=== PATIENT | male | born 1965 | race Caucasian/White ===

== ENCOUNTER 2022-02-03 15:30 | Outpatient (RCR) | payer OTHER, BC, SELFPAY ==
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
--- NOTE | 2022-02-03 15:51 | HP.PTREVAL ---
Dr. Wes Walls MD, It has been my pleasure to treat MARTHA EDGAR over the last 11 visits for Left Brachial Plexus Injury. Please see the progress note below for an update on the physical therapy plan of care! Subjective: Patient reports that he is no better or no worse with the function of his arm. He has no pain- he does have muscle soreness from the exercises. He is doing his HEP at home consistently. Objective/Function: Posture: FH, RS- can correct with verbal cues but does not maintain. Gait: good arm swing and trunk rotation. Observation: atrophy of the supraspinatus and infraspinatus. Palpation: not tender to touch in UE or cervical spine. 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 Shoulder: Flexion: 125 degrees 180 degrees Extn: WFL Abd: 180 degrees ER: 10, IR to belly, Cervical: WFL in all planes. Strength: Laminator Preforms: Right: 120, 120, 115 Left: 60, 70, 70. Elbow: Right Extn: 30, 28, 28 Right Flexion: 25, 28, 27. Left Extn:18, 18, 18 Left Flexion: 7, 8,9. . Shoulder- tested at neutral-. Flexion: Right:45, 46, 45 Left: 20, 22, 22. Extn: Right: 40,41,40 Left: 21, 19, 21. Abd: Right: 32,32,30 Left: 24, 24,22. Add: Right: 45,42,42 Left: 24,24,22. ER: Right: 29,28,27 Left: 19,18,17. IR: Right: 28,24,24 Left: 9,11,11. Sensation: WNL to hand- hand not tested due to previous surgeries and nerve damage. Plan Plan: 02/03/22: Follow up with on Mon. Focus on UE and scapular s/s- Brachial Plexus Injury. Balance/Gait/Functional tests - Balance/Special Test Scores Quick DASH Score: 45.4525 Goals Goal 1:: Patient will maintain proper posture t/o tx session to demo increased scap s/s Goal Time Frame: 4-6 Weeks Goal Progress: Progressing Goal 2:: Patient will demo full AROM in the left. Goal Progress: Progressing Goal 3:: Patient will improve strength in left UE by 10 lbs of force in IR/ER Goal Time Frame: 4-6 Weeks Goal Progress: Progressing Anticipated Interventions Patient/Client Instruction: Educate patient on: Benefits of Fitness Program Therapeutic Exercise to Include: Strength training, Endurance training, Body mechanics, Postural training, Neuromotor development, Dynamic Lumbar Stabilization, Scapular Strength/Stabilization For the Purpose of:: To improve muscle performance and motor function Please do not hesitate to contact me at [phone] by phone or if you have questions or concerns regarding this new plan of care! Sincerely, JERROD HobbsT
--- NOTE | 2022-05-16 13:49 | HP.PT.NRP ---
MARTHA EDGAR was seen in my office for initial evaluation on 01/10/22. The following Plan of Care was established for this patient: Initial Frequency: 3x /Week Initial Duration: 4 Weeks Patient/Client Instruction: Educate patient on: Benefits of Fitness Program Therapeutic Exercise to Include: Strength training, Endurance training, Body mechanics, Postural training, Neuromotor development, Dynamic Lumbar Stabilization, Scapular Strength/Stabilization For the Purpose of:: To improve muscle performance and motor function This patient was last seen in our office . Pertinent comments regarding their Physical therapy will appear below: Patient has not attended PT in over 30 days and is appropriate to d/c and return to MD for further evaluation At this point I will be discontinuing this patient from physical therapy. I would be happy to see this patient again in the future if found appropriate by the physician. Thank you! Ca Arrington, DPT Balance/Gait/Functional tests - Balance/Special Test Scores Quick DASH Score: 45.4528
== END 2022-02-03 19:00 | disposition home or self-care (01) ==
LOC: PT 15:30
PROVIDERS: PCP Family Medicine; Referring Provider Orthopaedic Surgery; Visit Provider Orthopaedic Surgery
DX: S14.3XXD Injury of brachial plexus, subsequent encounter (principal); X58.XXXD Exposure to other specified factors, subsequent encounter
CPT/HCPCS: 97110; 97163; 97164